=== PATIENT | female | born 2000 | race Caucasian/White ===

== ENCOUNTER 2022-06-04 02:46 | Emergency (ER) | payer MEDICAID ==
[~2022-06-04] VITALS: Ht 157.5 cm; Wt 67.8 kg
[2022-06-04] MEDS ORDERED: IBUPROFEN 800MG TABLET PO ONE (05:30)
[2022-06-04 06:36] VITALS: BP 113/77
== END 2022-06-04 07:06 | disposition home or self-care (01) ==
LOC: ER 02:46
DX: R51.9 Headache, unspecified (principal); I10 Essential (primary) hypertension
CPT/HCPCS: 99282